=== PATIENT | male | born 1995 | race Caucasian/White ===

== ENCOUNTER 2016-12-23 10:01 | Emergency (ER) | payer BC, MEDICAID ==
[2016-12-23 11:18] VITALS: BP 124/70
--- NOTE | 2016-12-23 11:44 | UC ---
Dental HPI - HPI Summary HPI Summary: Pain in 3rd molars as they are growing in. Top molars have broken the adjacent teeth, only has bottom L molar developed and it is impacted. Has apt later this month for removal. Wonders if he needs abx (took them 1 year ago for upper molar pain and it helped). - History of Current Complaint Chief Complaint: UCGeneralIllness Stated Complaint: DENTAL COMPLAINT WISDOM TEETH Time Seen by Provider: 12/23/16 11:17 Hx Obtained From: Patient Onset/Duration: Gradual Onset, Lasting Days Severity: Moderate Aggravating: Chewing Alleviating: OTC Meds - Allergies/Home Medications Allergies/Adverse Reactions: Allergies Allergy/AdvReac Type Severity Reaction Status Date / Time No Known Allergies Allergy Verified 12/23/16 11:18 PMH/Surg Hx/FS Hx/Imm Hx Previously Healthy: Yes - Surgical History Surgical History: Yes Surgery Procedure, Year, and Place: right wrist 2011 - Family History Known Family History: Positive: Hypertension - Social History Alcohol Use: None Substance Use Type: None Smoking Status (MU): Never Smoked Tobacco Review of Systems Constitutional: Negative Skin: Negative Eyes: Negative ENT: Dental Pain Respiratory: Negative Cardiovascular: Negative Gastrointestinal: Negative Genitourinary: Negative Motor: Negative Neurovascular: Negative Musculoskeletal: Negative Neurological: Negative Psychological: Negative All Other Systems Reviewed And Are Negative: Yes Physical Exam Triage Information Reviewed: Yes Appearance: Well-Appearing, No Pain Distress, Well-Nourished Vital Signs: Initial Vital Signs Temp 98.6 F 12/23/16 11:12 Pulse 77 12/23/16 11:12 Resp 14 12/23/16 11:12 BP 124/70 12/23/16 11:12 Pulse Ox 98 12/23/16 11:12 Vital Signs Reviewed: Yes Eye Exam: Normal Eyes: Positive: Conjunctiva Clear ENT Exam: Normal ENT: Positive: Normal ENT inspection, Hearing grossly normal, Pharynx normal, TMs normal. Negative: Tonsillar swelling, Tonsillar exudate Dental: Positive: Dental Fracture @ - upper 2nd molars Neck exam: Normal Neck: Positive: Supple, Nontender, No Lymphadenopathy Respiratory Exam: Normal Respiratory: Positive: Chest non-tender, Lungs clear, Normal breath sounds, No respiratory distress, No accessory muscle use Cardiovascular Exam: Normal Cardiovascular: Positive: RRR, No Murmur Musculoskeletal Exam: Normal Neurological Exam: Normal Neurological: Positive: Alert Psychological Exam: Normal Skin Exam: Normal Dental Complaint Course/Dx - Differential Dx/Diagnosis Provider Diagnoses: dental pain from erupting 3rd molars Discharge - Discharge Plan Condition: Stable Disposition: HOME Prescriptions: Naproxen TAB* [Naprosyn 375 mg TAB*] 375 mg PO Q8H #30 tab Penicillin VK TAB 500 MG(NF) [Penicillin VK 500 mg Tab(NF)] 500 mg PO QID #40 tab traMADol TAB* [Ultram*] 50 mg PO Q6HR PRN #15 tab MDD 4 PRN Reason: Pain Patient Education Materials: Toothache (ED) Additional Instructions: Make sure you keep your appointment to discuss removing your molars. Come back here if you have marked facial swelling, fever, or severe pain.
== END 2016-12-23 11:52 | disposition home or self-care (01) ==
LOC: UCCORT 10:01
DX: K00.6 Disturbances in tooth eruption (principal); K08.89 Other specified disorders of teeth and supporting structures
CPT/HCPCS: 99202; G0463

== ENCOUNTER 2017-02-04 16:15 | Emergency (ER) | payer SELFPAY ==
[2017-02-04 17:08] VITALS: BP 127/66
--- NOTE | 2017-02-04 17:19 | UC ---
Laceration HPI - HPI Summary HPI Summary: The patient comes in today for: 1. Laceration: Onset:1 hour ago. Palliative/provocative: Stretching and touch makes it worse. Quality: Burning. Region: between 3rd and 4th MP joints of the left hand. Severity: 4/10 Time: Constant. Associated symptoms: Event: He was moving a table and stuck a corner of a stove top. Tetanus: He got a "Tdap" 5 months ago. * - History Of Current Complaint Chief Complaint: UCSkin Stated Complaint: LFT HAND LAC-WC Time Seen by Provider: 02/04/17 17:10 Hx Obtained From: Patient - Allergies/Home Medications Allergies/Adverse Reactions: Allergies Allergy/AdvReac Type Severity Reaction Status Date / Time No Known Allergies Allergy Verified 02/04/17 17:04 Home Medications: Home Medications NK [No Home Medications Reported] 02/04/17 [History Confirmed 02/04/17] PMH/Surg Hx/FS Hx/Imm Hx Previously Healthy: Yes Endocrine History Of: Denies: Diabetes, Thyroid Disease, Hyperthyroidism, Hypothyroidism, Dyslipidemia Cardiovascular History Of: Denies: Cardiac Disorders, Hypertension, Pacemaker/ICD, Myocardial Infarction , Congestive Heart Failure, Atrial Fibrillation, Deep Vein Thrombosis, Bleeding Disorders Respiratory History Of: Denies: COPD, Asthma, Bronchitis, Pneumonia, Pulmonary Embolism GI/ History Of: Denies: Gastroesophageal Reflux, Ulcer, Gastrointestinal Bleed, Gall Bladder Disease, Kidney Stones, Diverticulitis, Renal Disease, Urosepsis Neurological History Of: Denies: TIA, CVA, Dementia, Seizures, Migraine Psychological History Of: Denies: Anxiety, Depression, Bipolar Disorder, Schizophrenia, Post Traumatic Stress Disorder Cancer History Of: Denies: Lung Cancer, Colorectal Cancer, Breast Cancer, Prostate Cancer, Cervical Cancer Other History Of: Negative For: HIV, Hepatitis B, Hepatitis C, Anticoagulant Therapy - Surgical History Surgical History: Yes Surgery Procedure, Year, and Place: right wrist 2011 - Family History Known Family History: Positive: Hypertension, Diabetes - Social History Occupation: Employed Full-time Alcohol Use: None Substance Use Type: None Smoking Status (MU): Never Smoked Tobacco - Immunization History Most Recent Tetanus Shot: 1 year ago Review of Systems Constitutional: Negative Skin: Negative Eyes: Negative ENT: Negative Respiratory: Negative Cardiovascular: Negative Gastrointestinal: Negative Genitourinary: Negative All Other Systems Reviewed And Are Negative: Yes Physical Exam Triage Information Reviewed: Yes Appearance: Well-Appearing, No Pain Distress, Well-Nourished Vital Signs: Initial Vital Signs Temp 98.8 F 02/04/17 17:04 Pulse 61 02/04/17 17:04 Resp 16 02/04/17 17:04 BP 127/66 02/04/17 17:04 Pulse Ox 100 02/04/17 17:04 Vital Signs Reviewed: Yes Eyes: Positive: Conjunctiva Clear. Negative: Discharge ENT: Positive: Hearing grossly normal. Negative: Pharyngeal erythema, Nasal congestion, Nasal drainage, Tonsillar swelling, Tonsillar exudate Dental: Positive: Bleeding - Mucous membranes pink and moist., Other:. Negative : Gross Decay/Caries @, Dental Fracture @ Neck: Positive: Supple, Nontender, No Lymphadenopathy. Negative: Nuchal Rigidity Respiratory: Positive: Chest non-tender, Lungs clear, No respiratory distress, No accessory muscle use. Negative: Crackles, Rhonchi Cardiovascular: Positive: RRR, No Murmur Abdomen Description: Positive: Nontender, No Organomegaly, Soft. Negative: Distended, Guarding, Peritoneal Signs Musculoskeletal: Positive: Strength Intact, ROM Intact, No Edema Neurological: Positive: Alert, Muscle Tone Normal Psychological: Positive: Age Appropriate Behavior, Consolable Skin: Positive: Other - Laceration between 3rd and 4th MP joint of the left hand --dorsum. Negative: rashes, breakdown Laceration Repair - Laceration Repair 1 Description: Linear Laceration Size After Repair: Length (cm) - 0.5, Width (mm) - 3, Depth (mm) - 3 Type Injection: Local Anesthesia Used: 2.0% Lido Cleansing Completed Via Routine Prep: Yes Irrigation With Pressure Irrigation Device: Yes Closure Material: Sutures Closure Method: Single Layer Suture Of: Skin Suture Type: Nylon - two 4-0 nylon Laceration Course/Dx - Course/Dx Course Of Treatment: Suture laceration closure. - Differential Dx - Laceration/Wound Provider Diagnoses: Laceration of the back of the left hand Discharge - Discharge Plan Condition: Stable Disposition: HOME Patient Education Materials: Laceration (ED), Care For Your Stitches (ED) Referrals: No Primary Care Phys,NOPCP [Primary Care Provider] - 2 Weeks (Please see your primary care provider or us in about 12-14 days for suture removal. If you don't have a primary care provider, please reference the included sheet of local provider. If you get worse, please be seen sooner.) Additional Instructions: Use [id number] pain medications as needed. Sleep with it elevated. Watch for increasin. Redness 2. Swelling 3. Tenderness 4. Drainage. If any of these occur, please let us know. Inspect the area daily and re-dress with a protective bandage until sutures removed.
[2017-02-04] MEDS ORDERED: Lidocaine 2% 10 ML* VIAL INJ ONE (17:23)
[2017-02-04] MEDS ORDERED: Lidocaine 2% PF * 5 ML VIAL INJ ONE (17:39)
== END 2017-02-04 18:31 | disposition home or self-care (01) ==
LOC: UCCORT 16:15
DX: S61.412A Laceration without foreign body of left hand, initial encounter (principal); W45.8XXA Other foreign body or object entering through skin, initial encounter; Y93.9 Activity, unspecified; Y92.9 Unspecified place or not applicable
CPT/HCPCS: 12001; 99211; G0463; J2001